=== PATIENT | male | born 1995 | race Caucasian/White ===

== ENCOUNTER 2021-06-18 06:52 | Emergency (ER) | payer SELFPAY ==
[~2021-06-18 06:52] MED LIST: Buprenorphine 8mg/Naloxone 2mg per 1 FILM SL SCH; METHadone HCl 10 MG TAB PO SCH; Midazolam HCl 2 mg/2 ml Vial ONE; Ondansetron PF 4 MG/2 ML Vial ONE
[2021-06-18 08:08] LABS: ALT (SGPT) 15 U/L (8-55); AST (SGOT) 17 U/L (5-34); Albumin 4.4 g/dL (3.5-5.0); Alkaline Phosphatase 66 U/L (40-110); Anion Gap 14 mmol/L (10-20); BUN (Urea Nitrogen) 14 mg/dL (8.9-20.6); Bilirubin, Total 0.9 mg/dL (0.2-1.2); Calc. Creatinine Clearance 0 mL/min (70-130); Calcium 9.3 mg/dL (7.8-10.44); Carbon Dioxide 25 mmol/L (22-29); Chloride 107 mmol/L (98-107); Globulin 2.4 g/dL (2.4-3.5); Glucose 104 mg/dL (70-105); Potassium 4.5 mmol/L (3.5-5.1); Protein, Total 6.8 g/dL (6.0-8.3); Sodium 141 mmol/L (136-145)
[2021-06-18 08:10] LABS: HIV (1/2) Antibody/Antigen NonReactive (NonReactive); HIV 1/2 INDEX 0.06 S/CO (<1.00)
[2021-06-18 08:27] LABS: #Basophils 0.1 10x3/uL (0.0-0.2); #Monocytes 0.8 10x3/uL (0.0-1.1); #Neutrophils 9.9 10x3/uL (1.5-8.4); %Basophils 0.4 % (0.0-2.0); %Eosinophils 0.1 % (0.0-6.0); %Lymphocytes 15.8 % (18.0-47.0); %Monocytes 6.2 % (0.0-10.0); %Neutrophils 77.3 % (40.0-75.0); Hemoglobin 14.2 g/dL (13.5-17.5); Mean Corpuscular HGB CONC 34.3 g/dL (32.0-36.0); Mean Corpuscular Hemoglobin 30.2 pg (27.0-33.0); Mean Corpuscular Volume 88.1 fl (81.2-95.1); Mean Platelet Volume 10.4 fl (7.4-10.4); Platelet Count 266 10x3/uL (150-450); RBC Distribution Width 12.8 % (11.5-14.5); White Blood Cell (WBC) Count 12.8 10x3/uL (3.5-10.5)
== END 2021-06-18 06:59 | disposition home or self-care (01) ==
LOC: CSHERS 06:52
DX: F11.23 Opioid dependence with withdrawal (principal); R11.2 Nausea with vomiting, unspecified; F17.210 Nicotine dependence, cigarettes, uncomplicated
CPT/HCPCS: 80053; 85025; 87389; 93005; 96374; 96375; J2250; J2405